=== PATIENT | male | born 1935 | race Caucasian/White ===

== ENCOUNTER 2018-04-28 16:00 | Observation (INO) | payer MEDICARE, OTHER, BC ==
[~2018-04-28 16:00] MED LIST: ISOVUE-370 76%-LOCM 1 ML ONE
[2018-04-28 17:38] LABS: #Basophils 0.1 thou/uL (0.0-0.2); #Eosinphils 0.2 thou/uL (0.0-0.7); #Lymphocytes 1.2 thou/uL (1.20-3.40); #Monocytes 0.7 thou/uL (0.11-0.59); %Basophils 1.1 % (0.0-1.0); %Eosinophils 3.7 % (0.0-10.0); %Monocytes 12.8 % (0.0-10.0); %Neutrophils 59.4 % (42.0-75.0); Mean Corpuscular HGB CONC 32.1 g/dL (32.0-36.0); Mean Corpuscular Hemoglobin 31.3 pg (27.0-31.0); Mean Corpuscular Volume 97.7 fL (78.0-98.0); Mean Platelet Volume 7.1 fL (7.4-10.4); Platelet Count 205 thou/uL (130-400); RBC Distribution Width 12.6 % (11.5-14.5); Red Blood Cell (RBC) Count 3.84 mill/uL (4.70-6.10); White Blood Cell (WBC) Count 5.1 thou/uL (4.8-10.8)
[2018-04-28 18:03] LABS: ALT (SGPT) 18 U/L (8-55); AST (SGOT) 19 U/L (5-34); Albumin 3.8 g/dL (3.4-4.8); Alkaline Phosphatase 117 U/L (40-150); Anion Gap 10 mmol/L (10-20); BUN (Urea Nitrogen) 14 mg/dL (8.4-25.7); Bilirubin, Total 0.4 mg/dL (0.2-1.2); Calc. Creatinine Clearance 0 mL/min (70-130); Calcium 9.9 mg/dL (7.8-10.44); Carbon Dioxide 26 mmol/L (23-31); Chloride 108 mmol/L (98-107); Estimated GFR-MDRD 64; Globulin 1.9 g/dL (2.4-3.5); Glucose 96 mg/dL (83-110); Potassium 4.2 mmol/L (3.5-5.1); Protein, Total 5.7 g/dL (5.8-8.1); Sodium 140 mmol/L (136-145)
--- NOTE | 2018-04-28 18:24 | RAD ---
RADIOGRAPH CHEST 1 VIEW: 04/28/18 at 5:28 p.m. HISTORY: 82-year-old male with dyspnea. FINDINGS: There is no air space density, pulmonary edema, or pneumothorax. The lateral costophrenic angles are sharp. There is an elevated left hemidiaphragm. There is mild subsegmental atelectasis at the left l ower lung zone. There is ACDF hardware in the cervical spine. IMPRESSION: No acute pulmonary findings. jn [] POS: CET
[2018-04-28] MEDS ORDERED: Fentanyl 100 MCG/2 ML VIAL ONE (20:46)
--- NOTE | 2018-04-28 20:53 | ULT ---
HISTORY: Bilateral lower extremity swelling, redness, pain. Multiple longitudinal and transverse images of the right and left lower extremity venous systems are obtained using a multihertz linear array transducer. Real time, color flow, and spectral waveform dop pler analysis demonstrates no evidence of acute or old clots seen in the right or left common femoral , superficial femoral, femoral profunda, popliteal, posterior tibial veins, and right and left greate r saphenous veins. IMPRESSION: No evidence of right or left lower extremity deep venous thrombosis. POS: MAHESH
[2018-04-28] MEDS ORDERED: methylPREDNISolone Sod Succ/PF 125 MG/2 ML VIAL ONE (21:36)
[2018-04-28] MEDS ORDERED: diphenhydrAMINE 50 MG/ML VIAL ONE (21:36)
[2018-04-28] MEDS ORDERED: Famotidine/PF 20 mg/2ml Vial ONE (21:36)
--- NOTE | 2018-04-28 22:37 | CT ---
CT ABDOMEN AND PELVIS WITH IV CONTRAST: 04/28/18 HISTORY: Edema, chronic neck pain, bilateral lower legs, testicle and abdominal pain. FINDINGS: The lung bases are unremarkable. There are low dense lesions in the liver. The largest measuring 15 c m. These lesions do not meet all criteria for simple cysts. No calcified gallstones are seen. the spl een, pancreas, adrenal glands, and kidneys are normal. No free air, free fluid, lymphadenopathy seen in the abdomen or pelvis. There are vascular calcificat ions without evidence of aneurysmal dilatation of the abdominal aorta. There are degenerative changes in the spine. the small bowel loops are not abnormally dilated. A few sigmoid diverticula. Normal ap pearing appendix is present. IMPRESSION: 1. Indeterminate liver lesions. These should be evaluated with ultrasound. 2. Sigmoid diverticulosis. 3. No evidence of appendicitis. POS: ARLETA
[2018-04-29 00:18] LABS: Troponin I 0.026 ng/mL (< 0.028)
[2018-04-29] MEDS ORDERED: ALPRAZolam 0.25 MG TAB PO SCH (01:30)
[2018-04-29] MEDS ORDERED: Ondansetron ODT 4 MG TAB PO PRN (01:50)
[2018-04-29] MEDS ORDERED: Ondansetron PF 4 MG/2 ML Vial IVP PRN (01:50)
[2018-04-29] MEDS ORDERED: ALPRAZolam 0.25 MG TAB ONE (02:01)
[2018-04-29 02:42] LABS: #Lymphocytes 0.5 thou/uL (1.20-3.40); #Monocytes 0.1 thou/uL (0.11-0.59); #Neutrophils 4.4 thou/uL (1.40-6.50); %Basophils 0.7 % (0.0-1.0); %Eosinophils 0.3 % (0.0-10.0); %Lymphocytes 9.3 % (21.0-51.0); %Monocytes 1.1 % (0.0-10.0); %Neutrophils 88.5 % (42.0-75.0); Hemoglobin 12.3 g/dL (14.0-18.0); Mean Corpuscular HGB CONC 32.7 g/dL (32.0-36.0); Mean Corpuscular Hemoglobin 31.1 pg (27.0-31.0); Mean Platelet Volume 7.3 fL (7.4-10.4); Platelet Count 202 thou/uL (130-400); RBC Distribution Width 12.6 % (11.5-14.5); Red Blood Cell (RBC) Count 3.96 mill/uL (4.70-6.10); White Blood Cell (WBC) Count 4.9 thou/uL (4.8-10.8)
[2018-04-29 03:01] LABS: Troponin I 0.015 ng/mL (< 0.028)
[2018-04-29 03:03] LABS: Anion Gap 14 mmol/L (10-20); BUN (Urea Nitrogen) 14 mg/dL (8.4-25.7); Calc. Creatinine Clearance 0 mL/min (70-130); Calcium 10.3 mg/dL (7.8-10.44); Carbon Dioxide 23 mmol/L (23-31); Chloride 108 mmol/L (98-107); Estimated GFR-MDRD 62; Glucose 202 mg/dL (83-110); Sodium 141 mmol/L (136-145)
[2018-04-29] MEDS ORDERED: Enoxaparin Sodium 40 MG/0.4 ML SYRINGE ONE (08:50)
[2018-04-29] MEDS ORDERED: Furosemide 40 MG/4 ML VIAL ONE (08:50)
[2018-04-29] MEDS: Enoxaparin Sodium 40 MG/0.4 ML SYRINGE SC SCH (08:55)
[2018-04-29] MEDS: Furosemide 40 MG/4 ML VIAL SLOW IVP SCH (08:55)
--- NOTE | 2018-04-29 12:29 | PDOC.PN ---
- Objective Resuscitation Status - Order Detail: 04/29/18 01:50 Resuscitation Status Routine Resuscitation Status: FULL: Full Resuscitation Result Diagrams: 04/29/18 02:28 04/29/18 02:28 Dx/Plan - Plan * .
--- NOTE | 2018-04-29 12:35 | PDOC.EVN ---
Event Note - Event Note Event Note: H&P dictated [id number]
[2018-04-29] MEDS ORDERED: Aspirin 81 mg Enteric Coated Tablet PO SCH (14:00)
[2018-04-29] MEDS ORDERED: Acetaminophen 325 MG TAB ONE (14:08)
[2018-04-29] MEDS: Acetaminophen 325 MG TAB PO PRN (14:11)
[2018-04-29] MEDS: ALPRAZolam 0.25 MG TAB PO PRN (17:34)
[2018-04-29] MEDS ORDERED: hydrALAZINE 20 MG/ML VIAL SLOW IVP PRN (18:53)
[2018-04-29] MEDS ORDERED: Morphine 2 MG/ML SYRINGE SLOW IVP PRN (18:53)
[2018-04-29 19:30] LABS: Troponin I 0.024 ng/mL (< 0.028)
[2018-04-29] MEDS ORDERED: traMADol HCl 50 MG TAB PO SCH (19:39)
[2018-04-29] MEDS: Lisinopril 5 MG TAB PO SCH ×2 (20:23→20:24)
[2018-04-29] MEDS: busPIRone HCl 10 MG TAB PO SCH (20:25)
[2018-04-29] MEDS: Atorvastatin Calcium 40 MG TAB PO SCH (20:25)
[2018-04-30] MEDS ORDERED: Melatonin 3 MG TAB PO PRN (00:17)
[2018-04-30 04:00] LABS: Troponin I 0.022 ng/mL (< 0.028)
[2018-04-30] MEDS: Acetaminophen 325 MG TAB PO PRN ×2 (07:32→20:43)
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
[2018-04-30] MEDS: Furosemide 40 MG/4 ML VIAL SLOW IVP SCH (09:17)
[2018-04-30] MEDS: busPIRone HCl 10 MG TAB PO SCH ×3 (09:17→20:40)
[2018-04-30] MEDS: Lisinopril 5 MG TAB PO SCH ×2 (09:17→20:39)
[2018-04-30] MEDS: Aspirin 81 mg Enteric Coated Tablet PO SCH (09:18)
[2018-04-30] MEDS: Enoxaparin Sodium 40 MG/0.4 ML SYRINGE SC SCH (09:18)
[2018-04-30] MEDS ORDERED: OXYCODONE IR PO PRN (10:47)
[2018-04-30 10:53] VITALS: BMI 25.3
--- NOTE | 2018-04-30 11:27 | PDOC.PN ---
- Subjective Encounter Start Date: 04/30/18 Encounter Start Time: 11:12 Patient sitting up in bed with family at bedside. He denies chest pain, but reports mild shortness of breath which is his baseline. He denies abdominal pain. Lower extremity edema improving. - Objective Resuscitation Status - Order Detail: 04/29/18 01:50 Resuscitation Status Routine Resuscitation Status: FULL: Full Resuscitation MAR Reviewed: Yes Vital Signs & Weight: Vital Signs (12 hours) Temp Pulse Resp BP BP Pulse Ox 04/30/18 09:17 64 178/79 H 04/30/18 07:35 97.9 F 64 20 178/79 H 97 04/30/18 04:05 98.8 F 54 L 18 157/69 H 97 04/29/18 23:31 98.2 F 64 16 137/64 97 Weight Admit Weight 174 lb 2 oz Weight 176 lb 11.2 oz I&O: 04/29/18 04/30/18 05/01/18 06:59 06:59 06:59 Intake Total 1050 Output Total 1100 Balance -50 Result Diagrams: 04/29/18 02:28 04/29/18 02:28 Radiology Reviewed by me: Yes Phys Exam - Physical Examination HEENT: PERRLA, oral pharynx no lesions Neck: no nodes, full ROM Respiratory: no wheezing, clear to auscultation bilateral Cardiovascular: RRR, no rub Gastrointestinal: soft, positive bowel sounds Musculoskeletal: pulses present 1+edema Neurological: non-focal, moves all 4 limbs Lymphatic: no nodes Psychiatric: normal affect, A&O x 3 Skin: no rash, cap refill <2 seconds Dx/Plan (1) Shortness of breath Code(s): R06.02 - SHORTNESS OF BREATH Status: Acute (2) Lower extremity edema Code(s): R60.0 - LOCALIZED EDEMA Status: Acute (3) Hypertension Code(s): I10 - ESSENTIAL (PRIMARY) HYPERTENSION Status: Acute (4) CHF (congestive heart failure) Code(s): I50.9 - HEART FAILURE, UNSPECIFIED Status: Acute - Plan cont current plan of care, plan discussed w/ family, DVT proph w/lovenox * Continue medical management * Await echo * Continue home medications * Monitor labs and vitals * Add issa abel
[2018-04-30] MEDS ORDERED: Tamsulosin HCl 0.4 MG CAP PO SCH (13:00)
[2018-04-30] MEDS: oxyCODONE 5 MG TAB PO PRN ×2 (13:27→23:57)
[2018-04-30] MEDS: ALPRAZolam 0.25 MG TAB PO PRN ×2 (13:28→23:58)
[2018-04-30] MEDS ORDERED: traZODone HCl 50 MG TAB PO PRN (16:00)
[2018-04-30] MEDS: Docusate 100 MG CAP PO SCH (20:39)
[2018-04-30] MEDS: Atorvastatin Calcium 40 MG TAB PO SCH (20:40)
[2018-05-01] MEDS ORDERED: Senokot 8.6 MG TAB PO SCH (09:00)
[2018-05-01] MEDS ORDERED: Tamsulosin HCl 0.4 MG CAP PO SCH ×2 (09:00)
[2018-05-01] MEDS: Docusate 100 MG CAP PO SCH (09:33)
[2018-05-01] MEDS: Aspirin 81 mg Enteric Coated Tablet PO SCH (09:33)
[2018-05-01] MEDS: busPIRone HCl 10 MG TAB PO SCH ×2 (09:33→15:56)
[2018-05-01] MEDS: Lisinopril 5 MG TAB PO SCH (09:34)
[2018-05-01] MEDS: Furosemide 40 MG/4 ML VIAL SLOW IVP SCH (09:34)
[2018-05-01] MEDS: Enoxaparin Sodium 40 MG/0.4 ML SYRINGE SC SCH (09:35)
[2018-05-01 12:31] VITALS: BP 125/58; TEMP 97.4
--- NOTE | 2018-05-01 15:01 | PDOC.EVN ---
Event Note - Event Note Event Note: patient seen and interviewed, discuused with Sheldon WYNN, chart reviewed, questions answered. agre with management and discharge
--- NOTE | 2018-05-01 23:36 | DIS ---
DATE OF ADMISSION: 04/28/2018 DATE OF DISCHARGE: 05/01/2018 DISCHARGE DIAGNOSES: 1. Bilateral lower extremity edema, improved. 2. Shortness of breath, improved. 3. Likely congestive heart failure, echo pending. 4. Hypertension, stable. 5. Hyperlipidemia, stable. 6. Indeterminate liver lesions, stable. CONSULTATIONS: None. PROCEDURES: None. LABORATORY DATA: WBC 4.9, RBC 3.96, hemoglobin 12.3, and platelets 202. Sodium 141, potassium 4.0, carbon dioxide 23, anion gap 14, BUN 14, creatinine 1.13, estimated GFR 62, glucose 202. AST 19, ALT 18. Troponin negative x5. BNP 73. DIAGNOSTIC IMAGING STUDIES: CT abdomen and pelvis showed indeterminate liver lesions, largest measuring 15 cm, low-density lesions, recommending further evaluation with ultrasound, no evidence of appendicitis, sigmoid diverticulosis. Chest x-ray showed no acute pulmonary findings. Lower extremity venous Doppler showed no evidence of right or left lower extremity deep venous thrombosis. HOSPITAL COURSE: Mr. Abdi is a pleasant 82-year-old male, who had presented to [facility] with increased shortness of breath, abdominal pain, and lower extremity edema. During his initial workup, he had underwent a CT abdomen and pelvis, which found indeterminate liver lesions, which recommended further evaluation with ultrasound. His liver enzymes were normal and his pain resolved. Chest x-ray showed no acute pulmonary findings due to lower extremity edema. Venous Doppler was obtained and found to be negative for DVT at this time. He was admitted under observation for further evaluation of his symptoms. He was placed on Lasix for diuretic and had tolerated well. Swelling down his lower extremities, improved with Lasix and SAM hose. He had obtained an echocardiogram, which is currently pending at this time. He was seen and examined with family at bedside. Prior to discharge, he had no further complaints of chest pain, shortness of breath, or abdominal pain. No nausea or vomiting. No fever, chills, headache, dizziness, or blurred vision. His lower extremity edema had improved; however, it was recommended that he continue on aspirin and furosemide 20 mg daily. He was also instructed to follow up with his primary care physician in 1 week for the echocardiogram results and to undergo further workup, which including an ultrasound of his abdomen for the finding of liver lesions on CT. He had verbalized his understanding for this discharge plan and he was deemed medically stable for discharge, 05/01/2018. DISCHARGE MEDICATIONS: 1. Aspirin 81 mg daily. 2. Furosemide 20 mg oral daily. 3. Lisinopril 5 mg oral twice daily. 4. Loratadine 10 mg oral daily. 5. Senna one tablet oral daily. 6. Colace 100 mg oral twice daily. 7. Calcium carbonate 500 mg oral twice daily. 8. Trazodone 2 tablets oral as needed for insomnia. 9. Oxycodone 2 tablets oral twice daily as needed for pain. 10. Vitamin D3 five tablets oral daily. 11. Tamsulosin 1 tablet oral daily. 12. Omeprazole 40 mg oral daily. 13. BuSpar two tablets oral 3 times daily. Discontinued medications: Ibuprofen 800 mg oral 3 times daily. FOLLOWUP: The patient was instructed to follow up with his primary care physician at [facility] in 1 week. He was also instructed to get followup lab work and abdominal ultrasound. Echocardiogram results pending. CONDITION ON DISCHARGE: Stable. ACTIVITY: As tolerated. DIET: Heart healthy, no added salt. DISPOSITION: Home on 05/01/2018. Job ID: [id number]
== END 2018-05-01 15:35 | disposition home or self-care (01) ==
LOC: ERS 16:00 → ERHOLD 23:20 → 2SW 04-29 14:48
PROVIDERS: ADMIT Hospitalist; ATTEND Hospitalist
DX: R60.0 Localized edema (principal); R06.02 Shortness of breath; I10 Essential (primary) hypertension; E78.5 Hyperlipidemia, unspecified; G62.9 Polyneuropathy, unspecified; K57.30 Diverticulosis of large intestine without perforation or abscess without bleeding; S13.4XXD Sprain of ligaments of cervical spine, subsequent encounter; Z87.891 Personal history of nicotine dependence; Z79.82 Long term (current) use of aspirin; Z79.899 Other long term (current) drug therapy; Z88.0 Allergy status to penicillin; Z88.8 Allergy status to other drugs, medicaments and biological substances; Z91.041 Radiographic dye allergy status; V89.2XXD Person injured in unspecified motor-vehicle accident, traffic, subsequent encounter
CPT/HCPCS: 71045; 74177; 80048; 80053; 83880; 84484 ×5; 85025 ×2; 93005; 93306; 93970; 94760; 96372 ×3; 96374; 96375 ×2; 96376; 99285; G0378 ×3; 36415; J0360; J1200; J1650; J1940; J2930; J3010; Q9966; S0028